=== PATIENT | female | born 1975 | race Caucasian/White ===

== ENCOUNTER 2016-09-20 18:55 | Emergency (ER) | payer SELFPAY ==
[~2016-09-20] VITALS: Ht 167.6 cm; Wt 67.3 kg
[2016-09-20 18:57] VITALS: Ht 167.6 cm; Wt 67.3 kg
[2016-09-20] MEDS ORDERED: KETOROLAC TROMETHAMINE 60 MG/2 ML VIAL IM STA (19:12)
--- NOTE | 2016-09-20 19:55 | DIAGNOSTIC IMAGING REPORT ---
RIGHT HIP UNILATERAL 2 VIEWS CLINICAL HISTORY: hip pain/no trauma Right COMPARISON: None. DISCUSSION: The bones and joint spaces appear intact. There is no evidence of fracture, dislocation or bony disease. There is no evidence for soft tissue swelling. IMPRESSION: Negative study. Electronically signed by: Eber Orr M.D. 09/20/2016 7:54 PM Dictated Date/Time: 09/20/2016 7:53 PM
--- NOTE | 2016-09-20 20:03 | EMERGENCY ROOM VISIT NOTE ---
ED Visit Note First contact with patient: 19:00 CHIEF COMPLAINT: Right hip pain HISTORY OF PRESENT ILLNESS: This 41-year-old female presents the ER with chief complaint of throbbing pain in her right hip. She states it is worse with standing. The patient denies any trauma to the right hip. The patient is concerned about Lyme's disease. The patient states that she removed a tick from her left abdomen 2 weeks ago. She denies any rash since that time. The patient states that she had Lyme's disease in the past. She states 8 months ago she was treated with a 28 day treatment of medication. She states that she was treated without getting tested. She was seen by a tombstone erector who saw the area where the tick was at and told her she had Lyme's disease and gave her 28 days worth of doxycycline. Just prior to that visit she was seen at [facility] in medicine. She had a Lyme titer drawn which was negative. REVIEW OF SYSTEMS: 6 system review was performed and was negative unless stated otherwise in history of present illness. PMH: The patient is healthy; peptic ulcer disease, 2 C-sections SOCIAL HISTORY: Patient lives with her children. The patient admits to tobacco use but denies any alcohol use. PHYSICAL EXAM: Vital Signs: Were reviewed Reviewed Nurse's notes. GENERAL: 41- year-old white female appears in no acute distress. MENTAL STATUS: Alert and oriented 3. SKIN: Skin barely visualize where the tick was adequate 2 weeks ago. There is no erythema. The patient has no bull's-eye rash on her body. RIGHT HIP: No gross bony deformity noted. No erythema or edema noted. Patient is nontender to palpation over the greater trochanter. Full range of motion. The patient has pain in the hip with weightbearing. EMERGENCY DEPARTMENT COURSE: The patient was evaluated. The patient was offered Toradol for pain but declined. X-ray of the right hip was ordered and interpreted by the radiologist and myself. DIAGNOSTICS:. RIGHT HIP UNILATERAL 2 VIEWS CLINICAL HISTORY: hip pain/no trauma Right COMPARISON: None. DISCUSSION: The bones and joint spaces appear intact. There is no evidence of fracture, dislocation or bony disease. There is no evidence for soft tissue swelling. IMPRESSION: Negative study. Electronically signed by: Eber Orr M.D. 09/20/2016 7:54 PM The patient was informed of the findings. The patient was insistent that she be retested for Lyme's disease. Titer was drawn. I told the patient that I will call her with results therefore she would not have to wait over an hour to get the results. The patient was in agreement and was discharged home in stable condition. DIAGNOSIS: Right hip pain TREATMENT PLAN: Rest, stay off the leg as much as possible until the pain subsides. Tylenol as needed for pain. We will call you later with your Lyme titer results. If it is positive we will treat you accordingly. Current/Historical Medications No Active Prescriptions or Reported Meds Allergies Coded Allergies: No Known Allergies (Unverified , 11/29/12) Vital Signs Date Time Temp Pulse Resp B/P Pulse Ox O2 Delivery O2 Flow Rate FiO2 09/20/16 18:57 36.9 78 18 119/73 100 Room Air Departure Information Prescriptions No Active Prescriptions or Reported Meds Referrals [facility] (PCP) Patient Instructions My [facility]
[2016-09-20 20:19] VITALS: BP 122/77; PULSE 73; TEMP 36.9; O2SAT 100
[2016-09-20 21:18] LABS: LYME DISEASE AB IGG NEG (NEG); LYME DISEASE AB IGM NEG (NEG)
== END 2016-09-20 20:20 | disposition home or self-care (01) ==
LOC: C.EDB 18:56 → C.EDD 20:20
DX: M25.551 Pain in right hip (principal); K27.9 Peptic ulcer, site unspecified, unspecified as acute or chronic, without hemorrhage or perforation; Z72.0 Tobacco use